=== PATIENT | male | born 1945 | race Caucasian/White ===

== ENCOUNTER 2022-06-02 13:16 | Outpatient (CLI) | payer MEDICARE | END 2022-06-02 13:17 | disposition home or self-care (01) | LOC: CSHULT 13:16 | PROVIDERS: ATTEND Student in an Organized Health Care Education/Training Program | DX: R01.1 Cardiac murmur, unspecified (principal); R06.09 Other forms of dyspnea; R06.01 Orthopnea; M79.89 Other specified soft tissue disorders; I35.0 Nonrheumatic aortic (valve) stenosis; I35.1 Nonrheumatic aortic (valve) insufficiency; I07.1 Rheumatic tricuspid insufficiency; I34.0 Nonrheumatic mitral (valve) insufficiency; I27.21 Secondary pulmonary arterial hypertension | CPT/HCPCS: 93306 ==

== ENCOUNTER 2022-10-19 04:09 | Emergency (ER) | payer MEDICARE ==
[2022-10-19 06:18] LABS: Bilirubin Negative (Negative); Blood, Urine 25 (Negative); CAUTI Indications for Culture Pelvic or flank pain; Clarity Slightly Cloudy (Clear); Glucose, Urine (Dipstick) Negative (Negative); Ketone, Urine Negative (Negative); Leukocyte Negative (Negative); Nitrite Negative (Negative); Protein, Urine (Dipstick) 100 mg/dl (Neg-Trace); RBC/HPF 0-3 HPF (0-3); Specific Gravity, Urine 1.015 (1.005-1.030); Urobilinogen Normal mg/dL (Less than 2); WBC/HPF 0-3 HPF (0-3)
[2022-10-19 06:19] LABS: Anion Gap 16 mmol/L (10-20); Bacteria/HPF None Seen HPF (None Seen); Carbon Dioxide 19 mmol/L (23-31); Chloride 108 mmol/L (98-107); Potassium 3.9 mmol/L (3.5-5.1); Sodium 139 mmol/L (136-145); Squamous Epithelial 0-3 HPF (0-3)
[2022-10-19 06:20] LABS: Albumin 3.2 g/dL (3.4-4.8); BUN (Urea Nitrogen) 21 mg/dL (8.4-25.7); Bilirubin, Total 0.5 mg/dL (0.2-1.2); Calc. Creatinine Clearance 0 mL/min (70-130); Estimated GFR 56; Glucose 104 mg/dL (83-110); Protein, Total 7.2 g/dL (5.8-8.1)
[2022-10-19 06:21] LABS: Urine Culture Reflex No No
[2022-10-19 06:23] LABS: ALT (SGPT) 14 U/L (8-55); AST (SGOT) 26 U/L (5-34); Alkaline Phosphatase 89 U/L (40-110)
== END 2022-10-19 05:42 | disposition home or self-care (01) ==
LOC: CSHERS 04:09
DX: R33.9 Retention of urine, unspecified (principal); I48.91 Unspecified atrial fibrillation; I10 Essential (primary) hypertension; Z79.01 Long term (current) use of anticoagulants; Z79.899 Other long term (current) drug therapy
CPT/HCPCS: 80053; 81001; 99283